=== PATIENT | female | born 1975 | race Caucasian/White ===

== ENCOUNTER 2018-05-02 14:20 | Emergency (ER) | payer OTHER ==
[~2018-05-02] VITALS: Ht 162.6 cm; Wt 78.0 kg
[~2018-05-02 14:20] MED LIST: ALOXI0.25 MG/5 IV; BACTRIM,SEPT1 TABLET PO; BENADRYL25 MG PO; CHEWABLE MULTI1 EACH PO; CISPLATIN1 MG/1 ML IV; COMPAZINE10 MG PO; DECADRON10 MG/ML 1 IV; EXCEDRIN EXTRA1 EACH PO; FEOSOL45 MG PO; FOSAPREPITANT IV; IRON325 MG PO; KEFLEX500 MG PO; LOPERAMIDE2 M1 PO; MOTRIN600 MG PO; TYLENOL ARTHRI650 MG PO; ZOFRAN4 MG PO
[2018-05-02 16:00] VITALS: BP 122/87
== END 2018-05-02 16:51 | disposition home or self-care (01) ==
LOC: EME 14:20
DX: S93.402A Sprain of unspecified ligament of left ankle, initial encounter (principal); S83.92XA Sprain of unspecified site of left knee, initial encounter; S63.501A Unspecified sprain of right wrist, initial encounter; X50.1XXA Overexertion from prolonged static or awkward postures, initial encounter; W01.0XXA Fall on same level from slipping, tripping and stumbling without subsequent striking against object, initial encounter; Z85.41 Personal history of malignant neoplasm of cervix uteri; Z90.710 Acquired absence of both cervix and uterus; Z92.21 Personal history of antineoplastic chemotherapy; Z92.3 Personal history of irradiation; Z88.1 Allergy status to other antibiotic agents
CPT/HCPCS: 73110; 73564; 73610; 99281; 99284